=== PATIENT | female | born 1995 | race Hispanic/Latino ===

== ENCOUNTER 2021-09-02 20:44 | Emergency (ER) | payer BC ==
[2021-09-02 21:45] LABS: #Eosinphils 0.1 10x3/uL (0.0-0.5); #Monocytes 0.9 10x3/uL (0.0-1.1); #Neutrophils 8.2 10x3/uL (1.5-8.4); %Basophils 0.2 % (0.0-2.0); %Eosinophils 0.7 % (0.0-6.0); %Lymphocytes 21.7 % (18.0-47.0); %Monocytes 7.6 % (0.0-10.0); %Neutrophils 69.5 % (40.0-75.0); Mean Corpuscular HGB CONC 35.3 g/dL (32.0-36.0); Mean Corpuscular Hemoglobin 31.3 pg (27.0-33.0); Mean Corpuscular Volume 88.6 fl (81.6-98.3); Mean Platelet Volume 9.6 fl (7.4-10.4); Platelet Count 365 10x3/uL (150-450); RBC Distribution Width 12.3 % (11.5-14.5); Red Blood Cell (RBC) Count 4.48 10x6/uL (3.90-5.03); White Blood Cell (WBC) Count 11.9 10x3/uL (3.5-10.5)
[2021-09-02 22:05] LABS: Bilirubin Neg (Negative); Blood, Urine 250 (Negative); Clarity Clear (Clear); Glucose, Urine (Dipstick) Normal (Negative); Ketone, Urine Negative (Negative); Leukocyte Negative (Negative); Nitrite Negative (Negative); Protein, Urine (Dipstick) 30 mg/dl (Neg-Trace); Specific Gravity, Urine 1.025 (1.002-1.036); Urobilinogen Normal mg/dL (Less than 2)
[2021-09-02 22:13] LABS: Bacteria/HPF None Seen HPF (None Seen); RBC/HPF Greater than 50 HPF (0-3); Squamous Epithelial 0-3 HPF (0-3); WBC/HPF 0-3 HPF (0-3)
[2021-09-02 22:22] LABS: ALT (SGPT) 40 U/L (8-55); AST (SGOT) 22 U/L (5-34); Albumin 3.7 g/dL (3.5-5.0); Alkaline Phosphatase 97 U/L (40-110); Anion Gap 15 mmol/L (10-20); BUN (Urea Nitrogen) 12 mg/dL (7.0-18.7); Bilirubin, Total 0.3 mg/dL (0.2-1.2); Calc. Creatinine Clearance 0 mL/min (70-130); Calcium 9.1 mg/dL (7.8-10.44); Carbon Dioxide 21 mmol/L (22-29); Chloride 106 mmol/L (98-107); Globulin 3.3 g/dL (2.4-3.5); Glucose 106 mg/dL (70-105); Potassium 3.7 mmol/L (3.5-5.1); Sodium 138 mmol/L (136-145)
== END 2021-09-02 23:33 | disposition home or self-care (01) ==
LOC: CSHERS 20:44
DX: O20.9 Hemorrhage in early pregnancy, unspecified (principal); Z3A.17 17 weeks gestation of pregnancy
CPT/HCPCS: 76815; 80053; 81003; 81015; 85025

== ENCOUNTER 2022-01-25 09:51 | Inpatient (IN) | payer BC ==
[2022-01-25] MEDS ORDERED: Famotidine/PF 20 mg/2ml Vial SLOW IVP PRN (10:09)
[2022-01-25] MEDS ORDERED: Promethazine HCl 25 MG/ML VIAL IM PRN ×3 (10:09→21:28)
[2022-01-25] MEDS ORDERED: CEFAZOLIN 2 GM in Sodium Chloride 0.9% 100 ML IVPB SCH (10:09)
[2022-01-25] MEDS ORDERED: Ondansetron PF 4 MG/2 ML Vial IVP PRN ×3 (10:09→21:28)
[2022-01-25] MEDS ORDERED: Lactated Ringer's 1,000 ML IV SCH (10:09)
[2022-01-25] MEDS ORDERED: hydrALAZINE 20 MG/ML VIAL SLOW IVP PRN ×2 (10:09→12:06)
[2022-01-25] MEDS ORDERED: Bicitra 30 ML UDCUP PO PRN (10:09)
[2022-01-25 10:21] VITALS: BMI 46.3
[2022-01-25 11:37] LABS: Hemoglobin 12.7 g/dL (12.0-15.5); Mean Corpuscular HGB CONC 35.5 g/dL (32.0-36.0); Mean Corpuscular Hemoglobin 31.2 pg (27.0-33.0); Mean Platelet Volume 11.7 fl (7.4-10.4); Platelet Count 298 10x3/uL (150-450); RBC Distribution Width 13.4 % (11.5-14.5); Red Blood Cell (RBC) Count 4.07 10x6/uL (3.90-5.03); White Blood Cell (WBC) Count 8.6 10x3/uL (3.5-10.5)
[2022-01-25] MEDS ORDERED: Ketorolac Tromethamine 30 MG/ML VIAL IVP PRN (11:47)
[2022-01-25] MEDS ORDERED: Naloxone HCl 0.4 mg/ml Vial IVP PRN ×4 (11:47→21:28)
[2022-01-25] MEDS ORDERED: HYDROmorphone 2 MG/ML VIAL SLOW IVP PRN (11:47)
[2022-01-25] MEDS ORDERED: diphenhydrAMINE 50 MG/ML VIAL IVP PRN ×2 (11:47→21:28)
[2022-01-25] MEDS ORDERED: Fentanyl 100 MCG/2 ML VIAL SLOW IVP PRN (11:47)
[2022-01-25] MEDS ORDERED: Promethazine HCl 25 MG SUPP PR PRN ×2 (11:47→21:28)
[2022-01-25] MEDS ORDERED: Moisturizing Cream (Eucerin) 113 GM JAR TOP PRN ×2 (11:47→21:28)
[2022-01-25] MEDS ORDERED: Naloxone HCl 0.4 mg/ml Vial IV PRN ×2 (11:47→21:28)
[2022-01-25] MEDS ORDERED: Ondansetron HCl/PF 4 MG/2 ML Vial IVP PRN (11:47)
[2022-01-25] MEDS ORDERED: Meperidine HCl/PF 25 MG/ML VIAL SLOW IVP PRN (11:47)
[2022-01-25] MEDS ORDERED: Oxytocin 10 UNITS/ML VIAL ONE (11:56)
[2022-01-25] MEDS ORDERED: Fentanyl 100 MCG/2 ML VIAL ONE (11:56)
[2022-01-25] MEDS ORDERED: Morphine PF 10 MG/10 ML VIAL ONE (11:56)
[2022-01-25] MEDS ORDERED: Phenylephrine 10 MG/ML VIAL ONE (11:56)
[2022-01-25] MEDS ORDERED: Ondansetron PF 4 MG/2 ML Vial ONE (11:56)
[2022-01-25] MEDS ORDERED: Ketorolac Tromethamine 30 MG/ML VIAL ONE (11:56)
[2022-01-25 11:58] LABS: HBSAg Index 0.19 S/CO (0-0.99); Hep B Surf Ag Non-Reactive S/CO (NonReactive)
[2022-01-25 11:59] LABS: Syphilis Antibody Nonreactive (Nonreactive); Syphilis Antibody Index 0.04 S/CO (<1.00 Non-Reactive)
[2022-01-25] MEDS ORDERED: Ketorolac Tromethamine 30 MG/ML VIAL IVP SCH (12:00)
[2022-01-25] MEDS ORDERED: Communication Order-Pharmacy FS SCH ×2 (12:00→21:30)
[2022-01-25] MEDS ORDERED: Acetaminophen 325 MG TAB PO PRN (12:06)
[2022-01-25] MEDS ORDERED: Boostrix 0.5 ML (Tdap) VIAL IM ONE (12:06)
[2022-01-25] MEDS ORDERED: diphenhydrAMINE 25 MG CAP PO PRN (12:06)
[2022-01-25] MEDS ORDERED: Misoprostol 200 MCG TAB PR PRN (12:06)
[2022-01-25] MEDS ORDERED: Lanolin Ointment 7 GM TUBE TOP PRN (12:06)
[2022-01-25] MEDS ORDERED: Simethicone Chewable 80 MG TAB PO PRN (12:06)
[2022-01-25] MEDS ORDERED: Bisacodyl 10 MG SUPP PR PRN (12:06)
[2022-01-25] MEDS ORDERED: NS w/ Oxytocin 30 units 500 ML ONE (15:50)
[2022-01-25] MEDS: Docusate 100 MG CAP PO SCH (20:42)
[2022-01-25] MEDS: Ketorolac Tromethamine 30 MG/ML VIAL IVP PRN (23:54)
[2022-01-26 05:24] LABS: Mean Corpuscular HGB CONC 35.5 g/dL (32.0-36.0); Mean Corpuscular Hemoglobin 31.4 pg (27.0-33.0); Mean Corpuscular Volume 88.6 fl (81.6-98.3); Platelet Count 253 10x3/uL (150-450); RBC Distribution Width 13.4 % (11.5-14.5); White Blood Cell (WBC) Count 12.2 10x3/uL (3.5-10.5)
[2022-01-26] MEDS: Ketorolac Tromethamine 30 MG/ML VIAL IVP PRN (05:49)
[2022-01-26] MEDS ORDERED: HYDROcodone/Acetaminophen 5/325 mg Tablet PO PRN ×3 (06:00→09:30)
[2022-01-26] MEDS ORDERED: Ibuprofen 800 MG TAB PO SCH ×2 (06:00→14:00)
[2022-01-26] MEDS: Prenatal Vitamin 1 TAB PO SCH (08:00)
[2022-01-26] MEDS: Docusate 100 MG CAP PO SCH ×2 (08:00→22:00)
[2022-01-26] MEDS: Ibuprofen 800 MG TAB PO SCH ×2 (12:33→22:12)
[2022-01-26] MEDS: HYDROcodone/Acetaminophen 5/325 mg Tablet PO PRN (15:42)
[2022-01-27] MEDS: Ibuprofen 800 MG TAB PO SCH ×2 (05:44→14:32)
[2022-01-27] MEDS ORDERED: HYDROcodone/Acetaminophen 5/325 mg Tablet PO PRN ×2 (06:00)
[2022-01-27] MEDS ORDERED: NIFEdipine XL 30 MG TAB PO SCH (09:00)
[2022-01-27] MEDS: Docusate 100 MG CAP PO SCH (09:03)
[2022-01-27] MEDS: Prenatal Vitamin 1 TAB PO SCH (09:03)
[2022-01-27] MEDS: HYDROcodone/Acetaminophen 5/325 mg Tablet PO PRN (12:35)
[2022-01-27 17:19] VITALS: BP 142/82; TEMP 98.7
== END 2022-01-27 18:30 | disposition home or self-care (01) | DRG 787 ==
LOC: CSHLD 09:51 → CSHPED 15:25
PROVIDERS: ADMIT Obstetrics & Gynecology; ATTEND Obstetrics & Gynecology
PROC: 10D00Z1 Extraction of Products of Conception, Low, Open Approach (ICD-10-PCS; principal; 2022-01-25)
DX: O34.211 Maternal care for low transverse scar from previous cesarean delivery (principal); O41.03X0 Oligohydramnios, third trimester, not applicable or unspecified; Z3A.38 38 weeks gestation of pregnancy; Z37.0 Single live birth; O24.425 Gestational diabetes mellitus in childbirth, controlled by oral hypoglycemic drugs; Z79.84 Long term (current) use of oral hypoglycemic drugs; O16.5 Unspecified maternal hypertension, complicating the puerperium
CPT/HCPCS: 36415; 36416; 51702; 85027; 86780; 86850; 86900; 86901; 87340; J0690; J1885; J2274; J2370; J2405; J2590; J3010; J3490; S0028